=== PATIENT | female | born 1980 | race Caucasian/White ===

== ENCOUNTER 2016-07-16 07:26 | Day surgery (SDC) | payer OTHER ==
[~2016-07-16 07:26] MED LIST: Lactated Ringers 1,000 ML IV SCH; Lidocaine 1%/Sod Bicarbonate in NS 8.4% 1 ML Syringe PRN; Sodium Chloride 0.9% 10 ML Syringe FLUSH PRN
[2016-07-16] MEDS ORDERED: Bupivacaine 0.25% 30 ML SDV ONE (07:43)
[2016-07-16] MEDS ORDERED: EPINEPHrine 1:1000 1 MG/ML 30 ML MDV ONE (07:43)
[2016-07-16] MEDS ORDERED: Propofol 200 MG/20 ML SDV ONE ×2 (07:44→09:03)
[2016-07-16] MEDS ORDERED: Midazolam 1 MG/ML 2 ML SDV ONE (07:44)
[2016-07-16] MEDS ORDERED: fentaNYL 100 MCG/2 ML SDV ONE ×2 (07:44→10:06)
[2016-07-16] MEDS ORDERED: Lidocaine 1% 4 ML ONE (07:45)
[2016-07-16] MEDS ORDERED: Rocuronium 50 MG/5 ML Vial ONE (07:47)
[2016-07-16] MEDS ORDERED: Dexamethasone 4 MG/ML 5 ML MDV ONE (07:48)
--- NOTE | 2016-07-16 08:34 | PCM.PREANE ---
Preanesthetic Assessment - Procedure Proposed Procedure: Right knee video arthroscopy - Anesthesia/Transfusion/Family Hx Anesthesia History: Prior Anesthesia Without Reaction Type of Anesthesia Reaction: Unknown Family History of Anesthesia Reaction: No Transfusion History: No Prior Transfusion(s) - Review of Systems General: No Symptoms Pulmonary: Other (Current everyday smoker) Cardiovascular: No Symptoms Gastrointestinal: Other (Occasional reflux) Neurological: Headache (Since since she was young) Other: Reports: Diabetes - Physical Assessment NPO Status Date: 07/15/16 NPO Status Time: 19:00 Pulse: 86 O2 Sat by Pulse Oximetry: 94 Respiratory Rate: 16 Blood Pressure: 111/64 Temperature: 97.3 C Vital Signs: Last Vital Signs Temp 36.3 C 07/16/16 07:30 Pulse 86 07/16/16 07:30 Resp 16 07/16/16 07:30 BP 111/64 07/16/16 07:30 Pulse Ox 94 L 07/16/16 07:30 Height: 1.57 m Weight: 79.379 kg ASA Class: 2 Mental Status: Alert & Oriented x3 Airway Class: Mallampati = 1 Dentition: Reports: Broken Tooth/Teeth (Chipped tooth in lower back right) Thyro-Mental Finger Breadths: 3 Mouth Opening Finger Breadths: 3 ROM/Head Extension: Full Lungs: Clear to auscultation, Normal respiratory effort Cardiovascular: Regular Rate, Regular Rhythm, No Murmurs - Lab Values: Laboratory Last Values POC Glucose 178 mg/dL (70-105) H 07/16/16 07:58 Urine HCG, Qual Negative (NEGATIVE) 07/16/16 07:32 MRSA (PCR) Negative 07/14/16 08:56 Labs reviewed prior to procedure - Allergies Allergies/Adverse Reactions: Allergies Allergy/AdvReac Type Severity Reaction Status Date / Time No Known Allergies Allergy Verified 07/15/16 13:23 - Blood Blood Available: No - Acknowledgements Anesthesia Type Planned: General Anesthesia Pt an Appropriate Candidate for the Planned Anesthesia: Yes Alternatives and Risks of Anesthesia Discussed w Pt/Guardian: Yes Pt/Guardian Understands and Agrees with Anesthesia Plan: Yes PreAnesthesia Questionnaire - Past Health History Medical/Surgical History: Denies Medical/Surgical History HEENT History: Reports: None Cardiovascular History: Reports: None Respiratory History: Reports: None Gastrointestinal History: Reports: None Genitourinary History: Reports: None [employer] AGENT History: Reports: None Musculoskeletal History: Reports: None Neurological History: Reports: None Psychiatric History: Reports: None Endocrine/Metabolic History: Reports: Diabetes, Type II Hematologic History: Reports: None Immunologic History: Reports: None Oncologic (Cancer) History: Reports: None Dermatologic History: Reports: None - Past Surgical History Head Surgeries/Procedures: Reports: None - SUBSTANCE USE Smoking Status *Q: Current Every Day Smoker Recreational Drug Use History: No - HOME MEDS Home Medications: Home Meds metFORMIN HCl [Metformin HCl] 500 mg PO BID 07/15/16 [History] Acetaminophen/HYDROcodone [[place] 325-5 MG] 1 - 2 tab PO Q6H PRN #40 tablet 07/16 [Rx] Aspirin/Calcium Carbonate/Mag [Aspirin Buffered 325 mg Tab] 325 mg PO BID #84 tablet 07/16/16 [Rx] - CURRENT (IN HOUSE) MEDS Current Meds: Current Medications Lactated Ringer's (Ringers, Lactated) 1,000 mls @ 125 mls/hr IV ASDIRECTED SERENITY Stop: 07/16/16 23:00 Last Admin: 07/16/16 07:55 Dose: 125 mls/hr Lidocaine/Sodium Bicarbonate (Buffered Lidocaine 1% In Ns 8.4%) 0.25 ml .XX ONETIME PRN PRN Reason: Prior to IV Start Stop: 07/16/16 18:00 Last Admin: 07/16/16 07:54 Dose: 0.25 ml Sodium Chloride (Saline Flush) 10 ml FLUSH ASDIRECTED PRN PRN Reason: Keep Vein Open Stop: 07/16/16 18:00 Discontinued Medications Bupivacaine HCl (Marcaine 0.25%) Confirm Administered Dose 30 ml .ROUTE .STK- MED ONE Stop: 07/16/16 07:44 Dexamethasone (Dexamethasone) Confirm Administered Dose 20 mg .ROUTE .STK-MED ONE Stop: 07/16/16 07:49 Epinephrine HCl (Adrenalin 1:1000) Confirm Administered Dose 30 mg .ROUTE .STK- MED ONE Stop: 07/16/16 07:44 Fentanyl (Sublimaze) Confirm Administered Dose 100 mcg .ROUTE .STK-MED ONE Stop: 07/16/16 07:45 Lidocaine HCl (Xylocaine-Mpf 1%) Confirm Administered Dose 4 mls @ as directed .ROUTE .STK-MED ONE Stop: 07/16/16 07:46 Midazolam HCl (Versed 1 Mg/Ml) Confirm Administered Dose 2 mg .ROUTE .STK-MED ONE Stop: 07/16/16 07:45 Propofol (Diprivan 20 Ml) Confirm Administered Dose 200 mg .ROUTE .STK-MED ONE Stop: 07/16/16 07:45 Rocuronium [place] (Zemuron) Confirm Administered Dose 50 mg .ROUTE .STK-MED ONE Stop: 07/16/16 07:48
[2016-07-16] MEDS ORDERED: Scopolamine 1.5 MG Transdermal Patch TOP ONE (08:40)
[2016-07-16] MEDS ORDERED: ceFAZolin 1 GM Vial ONE (08:47)
[2016-07-16] MEDS ORDERED: ePHEDrine/Normal Saline 25 MG/5 ML Syringe ONE (09:22)
[2016-07-16] MEDS ORDERED: Phenylephrine/Normal Saline 100 MCG/ML 10 ML Syringe ONE (09:31)
[2016-07-16] MEDS ORDERED: HYDROmorphone 1 MG/ML Syringe ONE (09:33)
[2016-07-16] MEDS ORDERED: Ondansetron 4 MG/2 ML SDV ONE (09:55)
[2016-07-16] MEDS ORDERED: Ondansetron 4 MG/2 ML SDV IVPUSH PRN (10:06)
--- NOTE | 2016-07-16 10:06 | PCM.POSTAN ---
POST ANESTHESIA ASSESSMENT - MENTAL STATUS Mental Status: other (drowsy) - VITAL SIGNS Pulse Rate: 82 SaO2: 96 Resp Rate: 8 Blood Pressure: 105/62 Temperature: 97.6 C - RESPIRATORY Respiratory Status: respiratory rate WNL, airway patent, O2 saturation stable - CARDIOVASCULAR CV Status: pulse rate WNL, blood pressure stable - GASTROINTESTINAL GI Status: no symptoms - PAIN Pain Score: 0 - POST OP HYDRATION Hydration Status: adequate & stable
[2016-07-16] MEDS ORDERED: diphenhydrAMINE 50 MG/ML SDV IVPUSH PRN (10:07)
[2016-07-16] MEDS: fentaNYL 100 MCG/2 ML SDV IVPUSH PRN ×2 (10:11→10:33)
[2016-07-16] MEDS ORDERED: Meperidine PF 50 MG/ML Syringe IVPUSH PRN (11:05)
[2016-07-16] MEDS ORDERED: HYDROmorphone 0.5 MG/0.5 ML Syringe IVPUSH PRN (11:05)
[2016-07-16 12:32] VITALS: BP 100/67
--- NOTE | 2016-07-16 13:33 | PCM48HPAN ---
Post Anesthesia Note - EVALUATION WITHIN 48HRS OF ANESTHETIC Vital Signs in Normal Range: Yes Patient Participated in Evaluation: Yes Respiratory Function Stable: Yes Airway Patent: Yes Cardiovascular Function Stable: Yes Hydration Status Stable: Yes Pain Control Satisfactory: Yes Nausea and Vomiting Control Satisfactory: Yes Mental Status Recovered: Yes
--- NOTE | 2016-07-22 06:55 | PCM.OPNOTE ---
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
--- NOTE | 2016-07-22 09:35 | OR ---
DATE OF OPERATION: 07/16/2016 SURGEON: Chandler Maya MD OPERATION PERFORMED: Right knee video arthroscopy, partial medial meniscectomy. PREOPERATIVE DIAGNOSIS: Right knee medial meniscus tear. POSTOPERATIVE DIAGNOSIS: 1. Right knee medial meniscus tear with grade 3 medial femoral condyle chondromalacia. 2. 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 ANESTHESIA: General LMA with local. ANESTHESIA PROVIDER: Roselia Jerez CRNA. PROPELLER INSPECTOR: Liya Stroud PA-C ESTIMATED BLOOD LOSS: Less than 5 mL. COMPLICATIONS: None. CONDITION: Stable. DESCRIPTION OF PROCEDURE: The patient was identified in the preop holding area. Proper site was marked and identified by the surgeon. The patient was taken back to the operating theater where after adequate anesthesia, the patient's right lower extremity was placed in a C-clamp nieves after a nonsterile tourniquet was applied. The left lower extremity was placed in a well leg nieves. Right lower extremity was then sterilely prepped and draped in the usual sterile fashion. OR time-out was performed. The patient received 2 g of IV Ancef. At this time anterolateral portal was created. Scope trocar was introduced and patellofemoral joint was visualized. The patient had grade 2 chondromalacia of the patella. There were no loose foreign bodies in the mediolateral gutter. Attention was turned to the medial compartment. Anteromedial portal was created with the use of a spinal needle. The patient was found to have a bucket-handle meniscus tear that was displaced into the notch that showed significant degenerative changes as well. At this time, it was decided that the patient could not undergo repair as she also did have grade 3 chondromalacia changes of the medial femoral condyle. At this time, a partial medial meniscectomy of the bucket-handle tear taken roughly 2/3rd of the posterior portion of the meniscus all the way to the anterior junction was removed. This was brought back to a stable rim. At this time, the notch was visualized. There was no sign of an ACL notch. The lateral compartment showed only grade 1 changes. At this time excess saline was drained from the joint. A 3-0 nylon simple suture was used for closure of the skin and the patient tolerated the procedure well and sent to PACU in stable condition. MMODAL /[id number]
== END 2016-07-16 11:55 | disposition home or self-care (01) ==
LOC: JD.SDS 07:26
PROVIDERS: ATTEND Orthopaedic Surgery
DX: S83.241A Other tear of medial meniscus, current injury, right knee, initial encounter (principal); M22.41 Chondromalacia patellae, right knee; M23.611 Other spontaneous disruption of anterior cruciate ligament of right knee; E11.9 Type 2 diabetes mellitus without complications; F17.210 Nicotine dependence, cigarettes, uncomplicated; Z79.82 Long term (current) use of aspirin; Z79.84 Long term (current) use of oral hypoglycemic drugs; X58.XXXA Exposure to other specified factors, initial encounter; Z79.899 Other long term (current) drug therapy; Z98.890 Other specified postprocedural states; J30.2 Other seasonal allergic rhinitis
CPT/HCPCS: 29881; 81025; 82962; 87641; A9270; J0171; J0690; J1100; J1170; J2250; J3010; J7050; J7120; 01400; J2704; J3490

== ENCOUNTER 2018-08-16 15:29 | Emergency (ER) | payer BC ==
[2018-08-16 15:56] VITALS: BP 140/81
--- NOTE | 2018-08-16 16:24 | EDM.PDOC ---
ED HPI GENERAL MEDICAL PROBLEM - General Chief Complaint: ENT Problem Stated Complaint: DENTAL COMPLAINT Time Seen by Provider: 08/16/18 16:16 Source of Information: Reports: Patient History Limitations: Reports: No Limitations - History of Present Illness INITIAL COMMENTS - FREE TEXT/NARRATIVE: 37-year-old female presents to the ED with severe submandibular pain and swelling of the right side of her neck. She has a known dental abscess identified by dentist last week August 11. Her pain started the day prior. She states the right side of her neck was swollen at the time she was seen in the clinic and started on antibiotics. She was started on oral Flagyl 500 mg 3 times a day and Augmentin 875/125mg twice daily. She reports over the weekend the swelling seemed to be somewhat better but recurred this morning and worsen. Patient has severe trismus can only open 1 cm in the midline. Pain is constant and severe. Unable to eat or drink due to severe pain on the right side of her face in warm water. He feels mildly nauseated. She is lightheaded and dizzy. She is also having diarrhea usually in the mornings onetime yellowish in color. This started 2 days ago. Onset: Sudden Onset Date: 08/03/18 Duration: Day(s):, Getting Worse Location: Reports: Face, Neck (Right side of neck and right side of face due to dental abscess) Quality: Reports: Ache, Throbbing, Other (Severe trismus. Can only open 1 cm in the midline.) Severity: Severe Improves with: Reports: None Worsens with: Reports: Other Context: Reports: Other (Confirm dental infection by panoramic x-rays by dentist on last August 11. He was instructed to go to the clinic for antibiotics.). Denies: Activity (Ring to drink or eat makes the pain much worse.), Exercise, Sick Contact, Trauma Associated Symptoms: Reports: Loss of Appetite, Malaise, Nausea/Vomiting, Other (Mild diarrhea usually once daily last 3 days). Denies: Confusion, Chest Pain, Cough, cough w sputum, Diaphoresis, Fever/Chills (Candidate due to the pain.), Headaches, Rash (Mild nausea), Seizure, Shortness of Breath, Syncope Treatments DEVELOPMENT ENG: Reports: Other (see below) (Tylenol Motrin and oral antibiotics. ) Right Lower Jaw Pain Score (Numeric/FACES): 10 - Related Data Allergies Allergy/AdvReac Type Severity Reaction Status Date / Time No Known Allergies Allergy Verified 08/16/18 15:47 Home Meds: Home Meds Amoxicillin/Clavulanate K [Augmentin 875-125 MG] 125 - 875 mg PO BID 08/16/18 [ History] metroNIDAZOLE [Metronidazole] 500 mg PO TID 08/16/18 [History] Past Medical History - Past Health History Medical/Surgical History: Denies Medical/Surgical History HEENT History: Reports: None Cardiovascular History: Reports: None Respiratory History: Reports: None Gastrointestinal History: Reports: None Genitourinary History: Reports: None [employer] History: Reports: None Musculoskeletal History: Reports: None Neurological History: Reports: None Psychiatric History: Reports: None Endocrine/Metabolic History: Reports: Diabetes, Type II Hematologic History: Reports: None Immunologic History: Reports: None Oncologic (Cancer) History: Reports: None Dermatologic History: Reports: None - Past Surgical History Head Surgeries/Procedures: Reports: None Musculoskeletal Surgical History: Reports: Other (See Below) Other Musculoskeletal Surgeries/Procedures:: Meniscus repair Social & Family History - Tobacco Use Smoking Status *Q: Current Every Day Smoker Years of Tobacco use: 21 Packs/Tins Daily: 0.5 - Caffeine Use Caffeine Use: Reports: Soda, Tea - Recreational Drug Use Recreational Drug Use: No - Living Situation & Occupation Living situation: Reports: Single Occupation: Employed ED ROS ENT - Review of Systems Review Of Systems: See Below Constitutional: Reports: Fever, Chills, Malaise, Weakness (More with initial onset of illness last week .), Fatigue, Decreased Appetite (Unable to eat due to trismus.) HEENT: Reports: Dental Pain (Right lower molar tooth dental infection confirmed by dentist last week. It's unclear if the tooth is broken off with the gingiva.) , Other (Right ear pain referred from). Denies: Glasses, Hearing Loss, Nosebleed Respiratory: Reports: No Symptoms ( right mandible) Cardiovascular: Reports: No Symptoms Endocrine: Reports: Fatigue GI/Abdominal: Reports: Diarrhea (Has been having more loose), Decreased Appetite ( yellowish stool every morning 3.), Difficulty Swallowing, Other ( Severe dental pain with trying to drink even water.) : Reports: Other (Not making as much urine is normal.) Skin: Reports: No Symptoms Neurological: Reports: No Symptoms Psychiatric: Reports: No Symptoms Hematologic/Lymphatic: Reports: No Symptoms Immunologic: Reports: No Symptoms ED EXAM, ENT - Physical Exam Exam: See Below Exam Limited By: No Limitations General Appearance: Alert, WD/WN, Moderate Distress, Other (Dear trismus can help open 1 cm in the midline. Heart rate is 92. Respiratory 20. Blood pressure 140/81 afebrile at this time) Eye Exam: Bilateral Eye: Normal Inspection Ears: Normal TMs Mouth/Throat: Other (I cannot visualize the oropharynx as she has severe trismus can open only to 1 cm in the midline. Tongue is mildly dry and coated) Head: Atraumatic, Normocephalic, Facial Swelling (Right hemifacial swelling extending into the right submandibular aspect of the neck in zone 2 and 3.) Neck: Limited Range of Motion, Lymphadenopathy (R) (A well-defined can because there is a much induration and swelling in the submandibular area.), Other ( Marked swelling submandibular area right neck extending down to the larynx. Exquisitely tender to palpation in this area.). No: Normal Inspection, Full Range of Motion Respiratory/Chest: Lungs Clear, Normal Breath Sounds (Mild tachypnea at rest), No Accessory Muscle Use, Respiratory Distress Cardiovascular: Normal Peripheral Pulses, Regular Rate, Rhythm, No Edema, No Gallop, No Murmur, No Rub GI/Abdominal: Normal Bowel Sounds, Soft, Non-Tender, No Organomegaly, No Abnormal Bruit, No Mass, Pelvis Stable Extremities: Normal Inspection, Normal Range of Motion, Non-Tender Neurological: Alert, Oriented, CN II-XII Intact, Normal Cognition Psychiatric: Anxious, Other (In a good deal of pain.) Skin: Warm, Dry, Intact, Normal Color, Erythema, Increased Warmth (There is mild erythema in the submandibular area of her right neck and right bhavesh-face.) Course - Vital Signs Last Recorded V/S: Last Vital Signs Temp 36.8 C 08/16/18 15:50 Pulse 92 08/16/18 15:50 Resp 20 08/16/18 15:50 BP 140/81 08/16/18 15:50 Pulse Ox - Orders/Labs/Meds Orders: Active Orders 24 hr Category Date Time Status Dextrose 5%-0.9% NaCl [Dextrose 5%-Normal Saline] 1,000 Med 08/16/18 17:00 Active ml IV ASDIRECTED Sodium Chloride 0.9% [Saline Flush] Med 08/16/18 17:11 Active 10 ml FLUSH ONETIME PRN cefTRIAXone [Rocephin] 2 gm Med 08/16/18 17:00 Active Sodium Chloride 0.9% [Normal Saline] 100 ml IV Q24H Medication Orders Ceftriaxone Sodium 2 gm/ (Sodium Chloride) 100 mls @ 200 mls/hr IV Q24H SERENITY Last Admin: 08/16/18 17:40 Dose: 200 mls/hr Dextrose/Sodium Chloride (Dextrose 5%-Normal Saline) 1,000 mls @ 999 mls/hr IV ASDIRECTED SERENITY Last Admin: 08/16/18 17:04 Dose: 999 mls/hr Sodium Chloride (Saline Flush) 10 ml FLUSH ONETIME PRN PRN Reason: KEEP VEIN OPEN Last Admin: 08/16/18 18:03 Dose: 10 ml Labs: Laboratory Tests 08/16/18 08/16/18 08/16/18 Range/Units 16:52 16:52 16:52 WBC 11.71 H (3.98-10.04) K/mm3 RBC 4.99 (3.98-5.22) M/mm3 Hgb 15.6 D (11.2-15.7) gm/L Hct 45.0 H (34.1-44.9) % MCV 90.2 (79.4-94.8) fl MCH 31.3 (25.6-32.2) pg MCHC 34.7 (32.2-35.5) g/dl RDW Std Deviation 43.0 (36.4-46.3) fL Plt Count 277 (182-369) K/mm3 MPV 10.8 (9.4-12.3) fl Neutrophils % (Manual) 75 H (40-60) % Band Neutrophils % 0 (0-10) % Lymphocytes % (Manual) 20 (20-40) % Atypical Lymphs % 0 % Monocytes % (Manual) 4 (2-10) % Eosinophils % (Manual) 1 (0.7-5.8) % Basophils % (Manual) 0 L (0.1-1.2) Platelet Estimate Adequate Plt Morphology Comment Normal RBC Morph Comment Normal ESR 43 H (0-20) mm/hr Sodium 140 (136-145) mEq/L Potassium 4.0 (3.5-5.1) mEq/L Chloride 106 (98-107) mEq/L Carbon Dioxide 24 (21-32) mEq/L Anion Gap 14.0 (5-15) BUN 6 L (7-18) mg/dL Creatinine 0.6 (0.55-1.02) mg/dL Est Cr Clr Drug Dosing 107.23 mL/min Estimated GFR (MDRD) > 60 (>60) mL/min BUN/Creatinine Ratio 10.0 L (14-18) Glucose 146 H (74-106) mg/dL Calcium 9.5 (8.5-10.1) mg/dL Magnesium 1.9 (1.8-2.4) mg/dl Total Bilirubin 0.4 (0.2-1.0) mg/dL AST 17 (15-37) U/L ALT 27 (14-59) U/L Alkaline Phosphatase 70 (46-116) U/L C-Reactive Protein 3.1 H* (<1.0) mg/dL Total Protein 7.9 (6.4-8.2) g/dl Albumin 4.0 (3.4-5.0) g/dl Globulin 3.9 gm/dL Albumin/Globulin Ratio 1.0 (1-2) Meds: Medications Generic Name Dose Route Start Last Admin Trade Name Freq PRN Reason Stop Dose Admin Ceftriaxone Sodium 2 gm/ 100 mls @ 200 mls/hr 08/16/18 17:00 08/16/18 17:40 Sodium Chloride IV 200 mls/hr Q24H SERENITY Administration Dextrose/Sodium Chloride 1,000 mls @ 999 mls/hr 08/16/18 17:00 08/16/18 17:04 Dextrose 5%-Normal Saline IV 999 mls/hr ASDIRECTED SERENITY Administration Sodium Chloride 10 ml 08/16/18 17:11 08/16/18 18:03 Saline Flush FLUSH 10 ml ONETIME PRN Administration KEEP VEIN OPEN Discontinued Medications Generic Name Dose Route Start Last Admin Trade Name Freq PRN Reason Stop Dose Admin Dexamethasone 20 mg 08/16/18 18:28 08/16/18 18:34 Dexamethasone IVPUSH 08/16/18 18:29 20 mg ONETIME ONE Administration Hydromorphone HCl 1 mg 08/16/18 16:50 08/16/18 17:03 Dilaudid IVPUSH 08/16/18 16:51 1 mg ONETIME ONE Administration Hydromorphone HCl 1 mg 08/16/18 17:56 08/16/18 18:31 Dilaudid IVPUSH 08/16/18 17:57 1 mg ONETIME ONE Administration Clindamycin Phosphate 900 mg/ 50 mls @ 100 mls/hr 08/16/18 16:51 08/16/18 17: 06 Premix IV 08/16/18 17:20 100 mls/hr ONETIME ONE Administration Iopamidol 100 ml 08/16/18 17:10 08/16/18 18:03 Isovue-300 (61%) IVPUSH 08/16/18 17:11 100 ml ONETIME ONE Administration Metoclopramide HCl 7.5 mg 08/16/18 16:51 08/16/18 17:02 Reglan IVPUSH 08/16/18 16:52 7.5 mg ONETIME ONE Administration - Radiology Interpretation Free Text/Narrative:: 37-year-old female presents to the ED for evaluation of increasing pain and swelling right bhavesh-face and right submandibular area over the last couple of days. Patient was seen by dentist last week August 11 and identified to have a dental abscess developing in one of her right lower molars.. The tooth is decayed but it's unclear whether there is broken off with the gingiva or not. Toward the clinic for antibiotics. I find this most unusual.. Patient was started on Flagyl 500 mg 3 times a day and Augmentin 875/125 mg twice a day on August 11. She's been able to keep the antibiotics down thus far. She is nauseated. His she states that the swelling in her right bhavesh-neck was present at the time of initial evaluation. She thought there was some mild improvement over the weekend but markedly worse this morning after she got up for the day. She has severe trismus can only open 1 cm in the midline the upright cannot see the oral cavity for the source of infection. Has significant swelling erythema right bhavesh-face and right submandibular area of her right neck suggestive of a submandibular abscess. This is in spite of oral antibiotic therapy. She is in severe pain. She is afebrile at present. Plan IV D5 normal saline at open. She will receive Reglan 7.5 mg IV with Dilaudid 1 mg IV for pain relief. She will have routine labs performed without blood cultures as she's been on antibiotic; the unlikely to yield anything since she is afebrile at present. She will have CT of the soft tissues of her neck with IV contrast. She will be given Rocephin 2 g IV and clindamycin 900 mg IV. - Re-Assessments/Exams Free Text/Narrative Re-Assessment/Exam: 08/16/18 17:57 Labs reveal an elevated white count at 11.7 with 75% neutrophils and no band cells reported. Hemoglobin is 15.6 with a hematocrit of 45.0. Platelet count 277,000. Sedimentation rate is 43. Sodium 140 with a potassium of 4.0. Chloride is 106 with a bicarbonate of 24. And a gap is 14.0. BUNs 6 with a creatinine of 0.6. GFR is greater than 60. BUN/creatinine ratio is 10.0. Glucose slightly elevated at 146. Calcium is 9.5 with a magnesium of 1.9. Liver function is normal. C-reactive protein slightly elevated at 3.1. Total protein 7.9 with an albumin fraction of 4.0. Patient is experiencing increased pain again in the right submandibular area. Repeat Dilaudid [address] was awaiting her creatinine before they would proceed with the contrast study of soft tissues of the neck. Her creatinine is normal .CT will be called at this time. 08/16/18 19:10: I was unable to locate any maxillofacial surgeon in [place] engineering manager electronics. I did speak with the ENT surgeon Dr. Saldana at [facility] in [place]. He was reluctant to accept care of this patient is easily leaving town in the morning and admits that he can drain the abscess but he does not remove teeth. And of management is removal of the abscess tooth. He therefore recommends the patient travel either to [place] or to [place] for maxillofacial surgical management. I then spoke to 1 call nurse at [facility] in [place]. She but be in touch with maxillofacial surgeon Dr Belle. He has accepted care of this patient but would like her of course in [place] as soon as possible. I discussed the options with the patient and she identifies she does not have the finances to afford a helicopter or plane ride to [place]. Her brother is here and can take her directly to [place] from here and she would be there in about 3-1/2 hours. A flight will take about 3 hours. She is phonating normally and has pain of course with swallowing but I am not concerned about her airway en route. There is also no ambulance availability at this time from our community or surrounding communities to take her to [place]. The fastest way for her to get there at this time is by private vehicle. She was advised to of course not eat or drink anything en route and to travel directly to the emergency room at [facility] in [place]. Departure - Departure Time of Disposition: 19:17 Disposition: Home, Self-Care 01 Condition: Fair Clinical Impression: Dental abscess, Abscess or cellulitis of submandibular region - Discharge Information *PRESCRIPTION DRUG MONITORING PROGRAM REVIEWED*: Not Applicable *COPY OF PRESCRIPTION DRUG MONITORING REPORT IN PATIENT GERARDO: Not Applicable Instructions: Dental Abscess Referrals: Janis Lucia [employer] GRADER [Primary Care Provider] - Forms: ED Department Discharge Additional Instructions: Travel to [facility] in [facility] to the emergency department I spoke with --maxillo facial surgeon who has accepted care at that facility. Do not drink or eat anything until arrival in the ED as the plan would be to take you to the operating room to remove the infected tooth and drain abscess. - My Orders Last 24 Hours: My Active Orders 08/16/18 17:00 Dextrose 5%-0.9% NaCl [Dextrose 5%-Normal Saline] 1,000 ml IV ASDIRECTED cefTRIAXone [Rocephin] 2 gm Sodium Chloride 0.9% [Normal Saline] 100 ml IV Q24H 08/16/18 17:11 Sodium Chloride 0.9% [Saline Flush] 10 ml FLUSH ONETIME PRN - Assessment/Plan Last 24 Hours: My Active Orders 08/16/18 17:00 Dextrose 5%-0.9% NaCl [Dextrose 5%-Normal Saline] 1,000 ml IV ASDIRECTED cefTRIAXone [Rocephin] 2 gm Sodium Chloride 0.9% [Normal Saline] 100 ml IV Q24H 08/16/18 17:11 Sodium Chloride 0.9% [Saline Flush] 10 ml FLUSH ONETIME PRN
[2018-08-16] MEDS ORDERED: HYDROmorphone 1 MG/ML Syringe IVPUSH ONE ×2 (16:50→17:56)
[2018-08-16] MEDS ORDERED: Metoclopramide 10 MG/2 ML SDV IVPUSH ONE (16:51)
[2018-08-16] MEDS ORDERED: Clindamycin Phosphate in D5W 900 MG in Premix Bag 1 BAG IV ONE ×2 (16:51)
[2018-08-16] MEDS ORDERED: cefTRIAXone 2 GM in Sodium Chloride 0.9% 100 ML IV SCH (17:00)
[2018-08-16] MEDS ORDERED: Dextrose 5%-0.9% NaCl 1,000 ML IV SCH (17:00)
[2018-08-16] MEDS ORDERED: Iopamidol 612 MG/ML 100 ML Bottle IVPUSH ONE (17:10)
[2018-08-16] MEDS ORDERED: Sodium Chloride 0.9% 10 ML Syringe FLUSH PRN (17:11)
[2018-08-16] MEDS ORDERED: Dexamethasone 10 MG/ML SDV IVPUSH ONE (18:28)
--- NOTE | 2018-08-16 18:32 | CT ---
CT neck Technique: Multiple axial sections through the neck were obtained. Intravenous contrast was utilized. Findings: 2 calcifications seen within the right parapharyngeal soft tissues. These are likely incidental in a patient has no symptoms of a salivary duct stone. Mild edema is noted within the right submandibular gland as compared to the left side presumably due to infection. Nothing seen at this time to indicate a well-defined abscess. There is soft tissue edema also noted inferior to the submandibular gland surrounding the medial portion of the mandible compatible with additional infection. Defect is identified within a posterior mandibular molar on the right side. Uncertain if this is due to dental caries or due to previous dental surgery. Scattered lymph nodes are seen which are believed to be within normal limits. Parotid salivary glands appear normal. No additional abnormality is seen within the neck. Small portion of the visualized lung apices are clear. Impression: 1. Edema within the right submandibular gland compatible with infection without definite well-defined abscess. Additional edema along the medial aspect of the right mandible extending slightly inferior to the submandibular gland compatible with additional infection. 2. Defect within a posterior mandibular molar on the right side either due to previous dental surgery or dental caries. 3. 2 calcifications within the right parapharyngeal soft tissues which is felt to be incidental if patient has no symptoms of parotid duct stone. 4. No additional abnormality is appreciated on CT study of the neck. Diagnostic code #3
== END 2018-08-16 19:33 ==
LOC: JD.ED 15:29
DX: K04.7 Periapical abscess without sinus (principal); K12.2 Cellulitis and abscess of mouth; E11.9 Type 2 diabetes mellitus without complications; F17.210 Nicotine dependence, cigarettes, uncomplicated
CPT/HCPCS: 36415; 70491; 80053; 83735; 85007; 85027; 85652; 86140; 96361; 96365; 96367; 96375; 96376; 99284; J0696; J1100; J1170; J2765; J3490; J7030; J7042; Q9967